=== PATIENT | male | born 1965 | race Caucasian/White ===

== ENCOUNTER 2018-10-20 18:10 | Emergency (ER) | payer MEDICAID, OTHER ==
[~2018-10-20] VITALS: Ht 162.6 cm; Wt 72.0 kg
[2018-10-20 18:16] VITALS: Ht 162.6 cm; Wt 72.0 kg
--- NOTE | 2018-10-20 20:46 | ERD ---
ER Documentation Chief Complaint Chief Complaint pt bib family with lac to left index finger while working, dressing in plac HPI This is a 53-year-old male patient presents to emergency room with complaint of near amputation to left second finger while cutting metal today approximately 6 hours prior to arrival. Bleeding is controlled, patient history significant for diabetes. Patient states he had tetanus shot 2 years ago. Patient able to to flex finger at MIP, finger severed at DIP connected with very little skin on the anterior surface. ROS All systems reviewed and are negative except as per history of present illness. Allergies Allergies: Coded Allergies: No Known Allergy (Unverified , 10/20/18) PMhx/Soc Medical and Surgical Hx: pt denies Surgical Hx Hx Alcohol Use: No Hx Substance Use: No Hx Tobacco Use: No Smoking Status: Never smoker FmHx Family History: diabetes Physical Exam Vitals Vital Signs Date Temp Pulse Resp B/P (MAP) Pulse Ox O2 O2 Flow FiO2 Time Delivery Rate 10/20/18 97.9 74 16 170/83 99 18:16 (112) Physical Exam Const: No acute distress Head: Atraumatic Eyes: Normal Conjunctiva ENT: Normal External Ears, Nose and Mouth. Neck: Full range of motion. No meningismus. Resp: Clear to auscultation bilaterally Cardio: Regular rate and rhythm, no murmurs Skin: No petechiae or rashes Ext: No cyanosis, or edema. Left hand: +csm, no point tenderness to hand. 2nd finger: min flex at MIP, laceration 90% circumferential at DIP, +bone exposure, +sensation, finger tip dusky Neur: Awake and alert, clear speech Psych: Normal Mood and Affect Results 24 hrs Current Medications Medications Dose Sig/Sarina Start Time Status Last (Trade) Ordered Route PRN Stop Time Admin Dose Reason Admin Cephalexin 500 mg ONCE ONCE 10/20/18 DC 10/20/18 (Keflex) PO 22:00 21:57 10/20/18 22:01 1 tab ONCE ONCE 10/20/18 Acetaminophen PO 23:30 / 10/20/18 23:31 Hydrocodone Bitart ([place] ()) Procedures/MDM PROCEDURES/MDM DIAGNOSTIC IMAGING: Read by radiologist. IMPRESSION: Findings suspicious for osteomyelitis of the index finger distal phalanx. PROCEDURES: Laceration Repair by me: Anesthesia: 1% lidocaine locally Location: Left second finger Tendon/Joint/Nerves: Minimal movement at MIP, no flexion or extension at DIP, patient reports pain but no sensation at distal tip of finger Foreign body: None detected after copious irrigation and exploration Technique: 5-O prolene x4, 6-0 prolene x2, Simple Interrupted Sutures Complexity: No subcutaneous sutures/mucosal repair/edge excision Post Closure Length: 4 cm Patient's bleeding was easily controlled in the department and there is no indication of anemia. No evidence of compartment syndrome, possible neurologic injury, vascular injury, open joint, and tendon laceration. LAB INTERPRETATION: None -Medications: 2% lidocaine digital block, [place] Patient states he had tetanus shot 2 years ago Patient tolerated medication well with no adverse reactions. Patient reported improvement in pain. Finger dressed and nonstick dressing with bulky gauze and Vaughn wrap for support -Consultation: No hand surgeon available at [facility] contacted, patient accepted at [facility], Dr. Delcid Case discussed and managed with Dr. Acosta MDM: This is a 53-year-old male patient presents emergency room with complaint of near amputation of left finger on second hand after cutting aluminum at 2 PM approximately 6 hours prior to arrival. Patient presents with hand wrapped in towel, bleeding is controlled, finger severed at DIP, evaluation of wound exposes bone, tissue, vasculature. Distal end of fingertip dusky. Patient reports pain. Minimal movement at MIP, no flexion at DIP. No other pain in hand. She is right-handed. History significant for diabetes. Radiological interpretation of x-ray stated osteomyelitis, however radiologist may not have been aware that this was a traumatic injury and area of concern is actually traumatic fracture of the bone. As patient is diabetic and fingertip does not appear to be viable or re-implantable, patient is needing amputation. Patient is unreliable for close follow-up and therefore [facility] was called for transfer to ensure proper care and treatment of patient's finger. Patient accepted at [facility], patient and agreeable to transfer. Patient alert, appropriate, hemodynamically stable, pain controlled at time of transfer. Departure Diagnosis: Primary Impression: Finger near amputation, left Additional Impression: Laceration Condition: Stable KEMAL SAPP NP Oct 20, 2018 20:46
[2018-10-20] MEDS ORDERED: CEPHALEXIN 500 MG CAP PO ONE (22:00)
[2018-10-20] MEDS ORDERED: HYDROCODONE/APAP (10/325) TAB PO ONE (23:30)
[2018-10-20 23:35] VITALS: BP 182/88; PULSE 65; RESP 22
== END 2018-10-20 23:40 | disposition short-term general hospital (02) ==
LOC: FTE 18:10
DX: S61.211A Laceration without foreign body of left index finger without damage to nail, initial encounter (principal); E11.9 Type 2 diabetes mellitus without complications; W26.8XXA Contact with other sharp object(s), not elsewhere classified, initial encounter; Y92.89 Other specified places as the place of occurrence of the external cause
CPT/HCPCS: 12002; 73140; Z7502; Z7610

== ENCOUNTER 2018-10-26 20:28 | Emergency (ER) | payer MEDICAID ==
[~2018-10-26] VITALS: Ht 167.6 cm; Wt 71.2 kg
[2018-10-26 20:32] VITALS: Ht 167.6 cm; Wt 71.2 kg
--- NOTE | 2018-10-26 21:36 | ERD ---
ER Documentation Chief Complaint Chief Complaint left 2nd finger wound check, also c/o rash right hand HPI 53-year-old male, right-handed, presents the emergency department, for wound check after a laceration repaired of the left index finger 5 days ago. The patient is complaining of persistent, sharp pain, no erythema, no edema, he is also complaining of distal numbness and decreased range of motion. After the laceration repaired done here at [facility], the patient was referred to [facility] where he was evaluated by the specialist and was told that most likely he will need an amputation and he has an appointment on 11/04/2018. ROS All systems reviewed and are negative except as per history of present illness. Medications Home Meds Active Scripts Hydrocodone/Acetaminophen ([place] 5-325 Tablet) 1 Each Tablet, 1 TAB PO BID PRN for PAIN, #10 TAB Prov:ROBERT BROWN MD 10/26/18 Triamcinolone Acetonide (Triamcinolone Acetonide) 0.025% - 60 Ml Lotion, 1 APPLIC TOP TID for 7 Days, #1 BOTTLE Prov:ROBERT BROWN MD 10/26/18 Allergies Allergies: Coded Allergies: No Known Allergy (Unverified , 10/20/18) PMhx/Soc Medical and Surgical Hx: pt denies Medical Hx, pt denies Surgical Hx Hx Alcohol Use: No Hx Substance Use: No Hx Tobacco Use: No Smoking Status: Never smoker Physical Exam Vitals Vital Signs Date Temp Pulse Resp B/P (MAP) Pulse Ox O2 O2 Flow FiO2 Time Delivery Rate 10/26/18 97.2 77 18 172/79 98 20:32 (110) Physical Exam Const: No acute distress Head: Atraumatic Eyes: Normal Conjunctiva ENT: Normal External Ears, Nose and Mouth. Neck: Full range of motion. No meningismus. Resp: Clear to auscultation bilaterally Cardio: Regular rate and rhythm, no murmurs Abd: Soft, non tender, non distended. Normal bowel sounds Skin: No petechiae or rashes Back: No midline or flank tenderness Ext: Left index finger: Laceration repaired, stitches in place, clean, dry and intact, no distal sensation, minimal capillary refill. Mild, erythematous, micropapular rash in the index finger. Neur: Awake and alert Psych: Normal Mood and Affect Procedures/MDM Status post laceration repair 5 days ago. No fever, no chills, good compliance with medications no side effects. The patient was evaluated for infection and neurovascular compromise. The wound was clean and irrigated with normal saline and dressing applied. Patient is stable, with adequate healing process, okay to discharge home, medication adherence reinforced. some side effects of prescribed medications (headache, rash, nausea, vomiting, diarrhea, drowsiness, habituation, bleeding, hypertension, interactions with other medications) were reviewed. The patient was instructed to follow up with the primary care provider in the next 48h. If symptoms persist, worsen or new symptoms develop, then patient should return to the ED immediately. Instructions explained and given directly by me to the patient with acknowledgment and demonstrated understanding. Disclaimer: Inadvertent spelling and grammatical errors are likely due to EHR/dictation software use and do not reflect on the overall quality of patient care. Also, please note that the electronic time recorded on this note does not necessarily reflect the actual time of the patient encounter. Departure Diagnosis: Primary Impression: Encounter for wound re-check Additional Impression: Contact dermatitis Condition: Stable Additional Instructions: Muchas ml por [facility] para swanson servicio. Esperamos que en swanson visita a la garry de emergencia swanson problema medico haya sido solucionado y que se sienta mucho mejor. Para estar seguros que swanson mejoria sigue en proceso, le pedimos el favor de hacer ajay edie de seguimiento medico con swanson doctor primario en los proximos 2-4 hurtado. Lleve con usted estos documentos y las medicinas recetadas. Si flash sintomas empeoran, NO SE ESPERE, por favor regrese a garry de emergencia INMEDIATAMENTE. En yoko que usted no tenga un mdico de atencin primaria: Llame al mdico o clnica comunitaria de referencia que aparece abajo dianna las horas de consultorio para hacer ajay edie para que le vean. CLINICAS: [facility] [phone] [facility] [place] [id number] [phone] [facility] [facility] [phone] [place] [id number] [phone] [place] [id number] [phone] [facility]. [phone] ROBERT FANG MD Oct 26, 2018 21:36
[2018-10-26] MEDS ORDERED: TRIA60LO10 TOP (21:38)
[2018-10-26] MEDS ORDERED: HYDR-4011 PO (21:38)
[2018-10-26 21:45] VITALS: BP 139/75; PULSE 77; RESP 18
== END 2018-10-26 21:45 | disposition home or self-care (01) ==
LOC: FTE 20:28
DX: L25.9 Unspecified contact dermatitis, unspecified cause (principal)
CPT/HCPCS: 99283